=== PATIENT | male | born 1985 | race African-American/Black ===

== ENCOUNTER 2018-10-03 12:37 | Emergency (ER) | payer MEDICAID ==
[~2018-10-03] VITALS: Ht 175.3 cm; Wt 87.1 kg
[~2018-10-03 12:37] MED LIST: AZITHROMYCIN250 MG ORAL; NKM; PROMETHAZINE-D118 ML ORAL; ZOFRAN ODT4 MG ORAL
[2018-10-03] MEDS ORDERED: Lidocaine 2% Visc 15ml soln ORAL ONE (13:00)
[2018-10-03 13:06] VITALS: BP 125/65
[2018-10-03] MEDS ORDERED: METFORMIN HCL1000 M1 ORAL (13:06)
[2018-10-03] MEDS ORDERED: TESSALON PERLE100 MG ORAL (13:06)
[2018-10-03] MEDS ORDERED: FLUTICASONE PRO16 G1 NASAL (13:06)
[2018-10-03] MEDS ORDERED: SUDAFED PE PRE1 EAC3 PO (13:06)
[2018-10-03] MEDS ORDERED: TYLENOL EXTRA500 MG ORAL (13:06)
--- NOTE | 2018-10-03 13:06 | Emergency Room Report ---
History of Present Illness General Chief Complaint: Flu Like Symptoms Source: Patient Present Illness HPI 33-year-old male patient presents the ER complaining of flulike symptoms for the past week. Patient reports cough with yellow sputum, sore throat, aches, ear pain, one episode of diarrhea yesterday, denies blood in diarrhea. Denies recent travel. Reports his children were sick at home prior to the onset of his symptoms. Reports subjective fever at home, denies taking temperature. Reports has been taking Tylenol and [id number] medications with mild relief of symptoms. Reports nasal congestion. Denies chest pain, shortness of breath. Patient is afebrile in the ER currently. Denies vomiting. Also reports history of diabetes, states he has not been taking his medications, requesting refill of his medications. States that he takes metformin and other unknown medication. Requesting work note. Denies history of heart attack or asthma. Denies calf or neck pain. Denies abdominal pain. Allergies: Coded Allergies: PENICILLINS (Verified Allergy, Unknown, Rash, 10/03/18) Patient History Past Medical History: see triage record Reviewed Nursing Documentation: PMH: Agreed; PSxH: Agreed Nursing Documentation-PMH Past Medical History: No History, Except For Hx Diabetes: Yes Review of Systems All Other Systems: negative except mentioned in HPI Physical Exam Vital Signs Date Time Temp Pulse Resp B/P (MAP) Pulse Ox O2 Delivery O2 Flow Rate FiO2 10/03/18 12:44 98.2 104 18 127/72 95 Room Air Sp02 EP Interpretation: reviewed, normal General Appearance: well appearing, no apparent distress, alert, GCS 15, non- toxic Head: normocephalic, atraumatic Eyes: bilateral eye normal inspection, bilateral eye PERRL ENT: hearing grossly normal, normal pharynx, no angioedema, normal voice, TMs + canals normal, uvula midline, moist mucus membranes, nasal congestion, other - Uvula midline Neck: full range of motion Respiratory: lungs clear, normal breath sounds, no rhonchi, no respiratory distress, no accessory muscle use, no wheezing, speaking full sentences Cardiovascular #1: regular rate, rhythm, no edema Cardiovascular #2: 2+ radial (R), 2+ radial (L) Gastrointestinal: non tender, soft, no mass, non-distended, no guarding, no rebound Genitourinary: no CVA tenderness Musculoskeletal: back normal, digits/nails normal, gait/station normal, normal range of motion, non-tender, no calf tenderness, Sarbjit's Sign negative Neurologic: alert, oriented x3, responsive, motor strength/tone normal, sensory intact Psychiatric: mood/affect normal Skin: no rash Medical Decision Making PA Attestation Dr. Giordano is my supervising Physician whom patient management has been discussed with. Diagnostic Impression: Primary Impression: Influenza-like symptoms Additional Impressions: Medication refill Hx of diabetes mellitus ER Course Pt presents to ED c/o cough, sore throat, body aches, earache, nasal congestion. DDX considered but are not limited to influenza, viral URI, pneumonia, strep throat, rhinitis, sinusitis, otitis media, otitis externa. VITAL SIGNS are WNL, patient is afebrile. ER COURSE: Provided with viscous lidocaine for sore throat. Lungs clear to auscultation, no wheezes, rhonci or rales. patient afebrile. Low suspicion for pneumonia, will not order CXR at this time. no tonsillar exudates, no pharyngeal erythema, history of cough, no fever, no stridor, uvula midline, low suspicion for peritonsillar abscess. Single episode of diarrhea, watery, no recent travel, no blood, does not require antibiotics. Likely viral etiology of symptoms. Due to symptoms longer than 2 days, will not provide with Tamiflu. Symptomatic treatment. drink plenty of fluids. Salt water gargles for sore throat. Followup with PCP for further treatment and/or referral as needed. ER precautions given. Palpation of refill of metformin. Patient that ER does not normally provide refills of medications. Instructed to call insurance and establish care with primary care provider. Needs to closely monitor diabetes medications. Patient reports understanding and agreement. DISCHARGE: -Rx given for Sudafed -Rx given for Tylenol/Acetaminophen -Rx given for Tessalon Perles -Rx given for fluticasone -Rx given for Metformin At this time pt is stable for d/c to home. Patient is resting comfortably, in no acute distress, nontoxic appearing. Patient to take medications as instructed Will provide with patient care instructions and any necessary prescriptions. Care plan and follow-up instructions provided. Patient instructed to follow-up with primary care provider in 3 - 5 days. Patient questions asked and answered. Patient reports understanding and agreement to treatment plan. ER precautions given. Patient instructed to return to ER immediately for any new or worsening of symptoms including but not limited to increasing SOB, persistent fever, intractable vomiting. - Please note that this Emergency Department Report was dictated using [employer] well logging engineer technology software, occasionally this can lead to erroneous entry secondary to interpretation by the dictation equipment. Last Vital Signs Date Time Temp Pulse Resp B/P (MAP) Pulse Ox O2 Delivery O2 Flow Rate FiO2 10/03/18 12:52 100 18 Room Air 10/03/18 12:44 98.2 127/72 95 Disposition: HOME, SELF-CARE Condition: Stable Scripts Guaifen/Phenyleph/Acetaminophn (Sudafed PE Pressure+Pain+Mucus) 1 Each Tablet 1 EACH PO BID, #24 TAB Prov: Alek Crocker 10/03/18 Fluticasone Propionate* (FLUTICASONE PROPIONATE*) 16 Gm [place].susp 1 SPRAY NASAL TWICE A DAY, #16 GM Prov: Alek Crocker 10/03/18 Benzonatate* (TESSALON PERLE*) 100 Mg Capsule 100 MG ORAL THREE TIMES A DAY, #20 PERLE Prov: Alek Crocker 10/03/18 Acetaminophen* (TYLENOL EXTRA STRENGTH*) 500 Mg Tablet 500 MG ORAL Q8H PRN for Prn Headache/Temp > 101, #30 TAB 0 Refills Prov: Alek Crocker 10/03/18 Metformin Hcl* (METFORMIN HCL*) 1,000 Mg Tablet 1000 MG ORAL DAILY, #30 TAB Prov: Alek Crocker 10/03/18 Patient Instructions: Diabetes Mellitus and Food, Influenza, Adult, Easy-to- Read Additional Instructions: Followup with primary care provider in 3 -5 days. Discussed diabetes management and care. Salt water gargles for sore throat. Take medications as directed. Tylenol for pain and fever symptoms. Patient questions asked and answered. ER precautions given, patient instructed to return to ER immediately for any new or worsening of symptoms. Alek Crocker Oct 03, 2018 13:06
[2018-10-03 13:20] VITALS: BP 125/65
== END 2018-10-03 13:20 | disposition home or self-care (01) ==
LOC: EMR 12:58
DX: J11.1 Influenza due to unidentified influenza virus with other respiratory manifestations (principal); Z76.0 Encounter for issue of repeat prescription; E11.9 Type 2 diabetes mellitus without complications; Z88.0 Allergy status to penicillin
CPT/HCPCS: 99283

== ENCOUNTER 2018-10-13 23:17 | Emergency (ER) | payer MEDICAID ==
[~2018-10-13] VITALS: Ht 175.3 cm; Wt 129.3 kg
[~2018-10-13 23:17] MED LIST changes: +FLUTICASONE PRO16 G1 NASAL; +METFORMIN HCL1000 M1 ORAL; +SUDAFED PE PRE1 EAC3 PO; +TESSALON PERLE100 MG ORAL; +TYLENOL EXTRA500 MG ORAL
[2018-10-13 23:34] VITALS: BP 145/94
[2018-10-13] MEDS ORDERED: HYDROCODON-ACE1 EA15 ORAL (23:41)
[2018-10-13] MEDS ORDERED: CLINDAMYCIN HC300 MG ORAL (23:41)
[2018-10-13] MEDS ORDERED: IBUPROFEN600 MG ORAL (23:41)
--- NOTE | 2018-10-13 23:41 | Emergency Room Report ---
History of Present Illness General Chief Complaint: Pain Source: Patient Present Illness HPI Is a 33-year-old male with no past medical history. He presents with chief complaint of dental pain. Onset for week but now right facial swelling. Pain is 10 out of 10. Worse with eating and palpation. No fever chills. No nausea no vomiting. No radiation. Denies any other complaint. Allergies: Coded Allergies: PENICILLINS (Verified Allergy, Unknown, Rash, 10/03/18) Patient History Past Medical History: see triage record, old chart reviewed Past Surgical History: none Pertinent Family History: none Social History: Denies: smoking Immunizations: other Reviewed Nursing Documentation: PMH: Agreed; PSxH: Agreed Nursing Documentation-PMH Past Medical History: No History, Except For Hx Diabetes: Yes Review of Systems Eye: Denies: eye pain, blurred vision ENT: Denies: ear pain, nose congestion, throat swelling Respiratory: Denies: cough, shortness of breath Cardiovascular: Denies: chest pain, palpitations Gastrointestinal: Denies: abdominal pain, diarrhea, nausea, vomiting Musculoskeletal: Denies: back pain, joint pain Skin: Denies: rash Neurological: Denies: headache, numbness Endocrine: Denies: increased thirst, increased urine Hematologic/Lymphatic: Denies: easy bruising All Other Systems: negative except mentioned in HPI Physical Exam Vital Signs Date Time Temp Pulse Resp B/P (MAP) Pulse Ox O2 Delivery O2 Flow Rate FiO2 10/13/18 23:22 97.9 81 16 145/94 97 Room Air vitals unremarkable Sp02 EP Interpretation: reviewed, normal General Appearance: well appearing, no apparent distress, alert Head: normocephalic, atraumatic Eyes: bilateral eye PERRL, bilateral eye EOMI ENT: hearing grossly normal, normal pharynx, other - He has dental decay to the right upper second premolar. Percussive tenderness. Mild right facial swelling. No palpable abscess Neck: full range of motion, supple, no meningismus Respiratory: chest non-tender, lungs clear, normal breath sounds Cardiovascular #1: regular rate, rhythm, no murmur Gastrointestinal: normal bowel sounds, non tender, no mass, no organomegaly, no bruit, non-distended Musculoskeletal: back normal, gait/station normal, normal range of motion Psychiatric: mood/affect normal Skin: warm/dry Medical Decision Making Diagnostic Impression: Primary Impression: Dental abscess ER Course Patient with a dental abscess. No evidence of necrotizing fasciitis or orbital cellulitis. Nothing to be I and D at this moment in time. We'll discharge home. Last Vital Signs Date Time Temp Pulse Resp B/P (MAP) Pulse Ox O2 Delivery O2 Flow Rate FiO2 10/13/18 23:34 97.9 88 16 145/94 97 Room Air Status: improved Disposition: HOME, SELF-CARE Condition: Stable Scripts Ibuprofen* (MOTRIN*) 600 Mg Tablet 600 MG ORAL THREE TIMES A DAY, #30 TAB 0 Refills Prov: Chalo Ramirez MD 10/13/18 Hydrocodone/Acetaminophen 5-325* (HYDROCODONE/ACETAMINOPHEN 5-325*) 1 Each Tablet 1 TAB ORAL Q6H PRN for For Pain, #15 TAB 0 Refills Prov: Chalo Ramirez MD 10/13/18 Clindamycin Hcl (CLINDAMYCIN HCL) 300 Mg Capsule 300 MG ORAL THREE TIMES A DAY, #21 CAP Prov: Chalo Ramirez MD 10/13/18 Additional Instructions: Follow-up with dentist SETH. Return for increasing pain, fever, chills or any concern. Chalo Ramirez MD Oct 13, 2018 23:41
[2018-10-13] MEDS: Clindamycin 150mg cap ORAL ONE (23:45)
[2018-10-13] MEDS: Norco 5mg/325mg tab ORAL ONE (23:46)
[2018-10-13 23:51] VITALS: BP 145/94
== END 2018-10-13 23:55 | disposition home or self-care (01) ==
LOC: EMR 23:55
DX: K04.7 Periapical abscess without sinus (principal); E11.9 Type 2 diabetes mellitus without complications; Z88.0 Allergy status to penicillin
CPT/HCPCS: 99283